=== PATIENT | male | born 1940 | race Caucasian/White ===

== ENCOUNTER → 2019-11-12 | Outpatient (CLI) | payer OTHER | LOC: SJCVC 13:31 | PROVIDERS: ATTEND Internal Medicine | DX: R94.31 Abnormal electrocardiogram [ECG] [EKG] (principal); I82.5Y3 Chronic embolism and thrombosis of unspecified deep veins of proximal lower extremity, bilateral; I95.1 Orthostatic hypotension; E78.5 Hyperlipidemia, unspecified; D68.62 Lupus anticoagulant syndrome; Z95.828 Presence of other vascular implants and grafts; Z79.01 Long term (current) use of anticoagulants ==

== ENCOUNTER → 2019-11-16 | Outpatient (CLI) | payer OTHER | LOC: SJCVCIMAG 10:35 | PROVIDERS: ATTEND Internal Medicine | DX: I08.0 Rheumatic disorders of both mitral and aortic valves (principal); I95.1 Orthostatic hypotension; E78.5 Hyperlipidemia, unspecified; Z87.898 Personal history of other specified conditions ==

== ENCOUNTER → 2020-11-15 | Outpatient (CLI) | payer OTHER | LOC: SJCVC 10:46 | PROVIDERS: ATTEND Internal Medicine | DX: R94.31 Abnormal electrocardiogram [ECG] [EKG] (principal); E78.5 Hyperlipidemia, unspecified; I95.1 Orthostatic hypotension; I82.5Y3 Chronic embolism and thrombosis of unspecified deep veins of proximal lower extremity, bilateral; D68.62 Lupus anticoagulant syndrome; Z95.828 Presence of other vascular implants and grafts; Z88.8 Allergy status to other drugs, medicaments and biological substances; Z79.01 Long term (current) use of anticoagulants; Z79.899 Other long term (current) drug therapy ==